=== PATIENT | female | born 1960 | race Caucasian/White ===

== ENCOUNTER 2018-10-06 08:50 | Day surgery (SDC) | payer OTHER, SELFPAY ==
[2018-10-06] VITALS (10 sets, daily range): BP systolic 89–119; BP diastolic 59–75; PULSE 54–80; RESP 9–22; TEMP 36.2–36.7; O2SAT 94–99; BMI 21.4
[2018-10-06] MEDS: SODIUM CHLORIDE 0.9% 1,000 ML 200 ML IV ×2 (09:00→10:30)
--- NOTE | 2018-10-06 09:46 | PM.HP.1 ---
History of Present Illness Date Patient Seen: 10/06/18 Time Patient Seen: 09:47 Chief complaint: [id number] Narrative: The patient is a woman here for screening colonoscopy. Her last exam was 10 years ago. No family history of colon cancer and no personal history of polyps. Patient History Family History (Updated 08/01/16 @ 00:00 by Conversion Provider) Father Age: 88 History of hip replacement Mother Age: 87 Cancer History of hip replacement Back pain Social History household members: spouse Family & Social History Family History Father Age: 88 History of hip replacement Mother Age: 87 Cancer History of hip replacement Back pain Social History: household members spouse Meds Home Medications Medication Instructions Recorded Confirmed Type gkerhtfdgi-tcmykzptxknpr-brnj 0 SEE INSTRUCTIONS #0 07/31/16 History levothyroxine 0 PO QAM #90 tab 08/05/16 Rx Allergies Allergy/AdvReac Type Severity Reaction Status Date / Time codeine [CODEINE] Allergy Unknown Unverified 06/25/17 12:35 Penicillins [PENICILLINS] Allergy Unknown Unverified 06/25/17 12:35 Review of Systems Review of Systems All systems reviewed & are unremarkable except as noted in HPI and below Exam Vital Signs (past 8 hours): - 10/06/18 09:09 Temperature 97.1 F L Pulse Rate 80 Respiratory Rate 16 Blood Pressure 119/75 Pulse Oximetry 99 Oxygen Delivery Method Room Air Narrative Exam Narrative: Pleasant cooperative patient no apparent distress. Lungs are clear to auscultation. No rales or rhonchi. Heart regular rate and rhythm no murmur gallop. Abdomen is soft nontender without mass. No obvious hernias. Patient is alert and oriented x3. Assessment & Plan Assessment & Plan narrative: The patient for a screening colonoscopy. I have discussed the procedure with them. Risks of bleeding, perforation which would necessitate major operation, failure to find remove all lesions, the potential tattoo were all discussed. All questions were answered. They wished to proceed.
--- NOTE | 2018-10-06 09:48 | PM.PREOP ---
Pre-operative Note Interval Note History & Physical reviewed/Exam performed by Physician: Yes Changes to H&P: No ASA Class (for procedural sedation): I
[2018-10-06] MEDS: ONDANSETRON 4 MG/2 ML INJ IV (09:52)
[2018-10-06] MEDS: MIDAZOLAM 5 MG/5 ML VIAL IV (09:55)
[2018-10-06] MEDS: fentaNYL 250 MCG/5 ML INJ IV (09:55)
--- NOTE | 2018-10-06 10:04 | PM.OP.ENDO ---
Operative Date/Time/Diagnoses Date of procedure: 10/06/18 Time of procedure: 10:04 Pre-op diagnosis: Screening exam. Last colonoscopy 10 years ago. Post-op diagnosis: same (Incomplete exam. Very poor prep.) Procedure & Clinicians Study performed: Colonoscopy abandoned at 35 cm Same procedure as scheduled: No Indications: Screening Surgeon: Ron Arias Procedure Notes SCOAP/Timeout: Performed Procedure in detail: The patient is placed in left lateral decubitus position underwent IV sedation directed by the surgeon consisting of fentanyl Versed. Digital exam was unremarkable. Scope was inserted and I medial encountered stool. Stool covered every surface of the colon from this point to where I abandoned the procedure at 35 cm. I was hoping to get above this level and find clear colon but it was apparent that that was not going to be the case. The scope was slowly removed. No lesions were seen. Will have to re-prepped the patient. She had nausea and vomiting so will try different prep and give her a 2 day prep. Scope withdrawal time: Not applicable Sedation minutes: 9 Findings: other findings (Stool covered the entire surface of the colon) Specimen(s): none sent Complications: none Recommendations: Other recommendation (Repeat colonoscopy with 2 day prep and a different product.) Follow up: as needed Disposition: PACU
--- NOTE | 2018-10-06 10:39 | SUR.PHASEII ---
Assumed care from Anirudh, pt c/o nausea and promptly started to dry heave then vomited yellow greenish vomit. Dr Arias called and made aware, compazine ordered, pharmacy called and will bring. Cool washcloth to forehead, pt did not want offered Queaze ease.
[2018-10-06] MEDS: PROCHLORPERAZINE 10 MG/2 ML VIAL IV (10:48)
[2018-10-06] MEDS: SCOPOLAMINE 1 PATCH TOP (10:54)
--- NOTE | 2018-10-06 10:57 | SUR.PHASEII ---
Compazine given and scopolamine patch. pt resting comfortably and call morris in reach.
--- NOTE | 2018-10-06 13:51 | SUR.PHASEII ---
Late enrty: Pt's nausea gone soon after meds and patch administered. in to pick pt up, medication instruction given. Pt ready to go , dressed and left in stable condition. Pt and aware to reschedule with surgery office.
== END 2018-10-06 12:15 | disposition home or self-care (01) ==
PROVIDERS: Family Provider Family Medicine; PCP Family Medicine; Visit Provider Specialist
PROC: 0DJD8ZZ Inspection of Lower Intestinal Tract, Via Natural or Artificial Opening Endoscopic (ICD-10-PCS; CPT 45378; principal; 2018-10-06 09:45)
DX: Z12.11 Encounter for screening for malignant neoplasm of colon (principal)
CPT/HCPCS: 45378; 99152; J0780; J2250; J2405; J3010

== ENCOUNTER 2019-01-19 07:45 | Day surgery (SDC) | payer OTHER, SELFPAY ==
[2019-01-19] VITALS (10 sets, daily range): BP systolic 93–131; BP diastolic 53–74; PULSE 52–70; RESP 11–16; TEMP 36–36.8; O2SAT 94–100; BMI 21.0
[2019-01-19] MEDS: SODIUM CHLORIDE 0.9% 1,000 ML 200 ML IV ×2 (08:20→10:22)
--- NOTE | 2019-01-19 08:57 | PM.HP.1 ---
History of Present Illness History of Present Illness Date Patient Seen: 01/19/19 Time Patient Seen: 08:57 Chief complaint: [id number] Narrative: The patient is a woman here for a screening colonoscopy. I attempted this in September but she had a very poor prep despite following the instructions. She is brought back after 2 day prep and a different type of prep. She said the results were much better and she is clear. Last colonoscopy was 11 years ago. Patient History Medical History Stomach ulcer (Acute) Family & Social History Family History Father Age: 88 History of hip replacement Mother Age: 87 Cancer History of hip replacement Back pain Social History: household members spouse Meds Home Medications and Allergies Home Medications Medication Instructions Recorded Confirmed Type fgcbownirk-jrtzixgqznizx-lbne 1 tab PO SEE INSTRUCTIONS #0 07/31/16 01/19/19 History levothyroxine 100 mcg PO QAM 10/06/18 01/19/19 History Allergies Allergy/AdvReac Type Severity Reaction Status Date / Time codeine [CODEINE] Allergy Unknown Rash-years Verified 01/19/19 08:02 ago Penicillins [PENICILLINS] Allergy Unknown Rash-25 Verified 01/19/19 08:02 years ago Review of Systems Review of Systems ROS Unobtainable: All systems reviewed & are unremarkable except as noted in HPI and below Exam Vital Signs (past 8 hours): - 01/19/19 08:08 Temperature 97.9 F Pulse Rate 53 L Respiratory Rate 15 Blood Pressure 110/67 Pulse Oximetry 100 Oxygen Delivery Method Room Air Narrative Exam Narrative: Pleasant cooperative patient no apparent distress. Lungs are clear to auscultation. No rales or rhonchi. Heart regular rate and rhythm no murmur gallop. Abdomen is soft nontender without mass. No obvious hernias. Patient is alert and oriented x3. Assessment & Plan Assessment & Plan narrative: The patient for a screening colonoscopy. I have discussed the procedure with them. Risks of bleeding, perforation which would necessitate major operation, failure to find remove all lesions, the potential tattoo were all discussed. All questions were answered. They wished to proceed.
--- NOTE | 2019-01-19 08:59 | PM.PREOP ---
Pre-operative Note Interval Note History & Physical reviewed/Exam performed by Physician: Yes Changes to H&P: No ASA Class (for procedural sedation): II
[2019-01-19] MEDS: fentaNYL 250 MCG/5 ML INJ IV (09:29)
[2019-01-19] MEDS: MIDAZOLAM 5 MG/5 ML VIAL IV (09:29)
--- NOTE | 2019-01-19 09:32 | PM.OP.ENDO ---
Operative Date/Time/Diagnoses Date of procedure: 01/19/19 Time of procedure: 09:33 Pre-op diagnosis: Screening examination. Last exam over 11 years ago. Post-op diagnosis: same (Sigmoid diverticulosis extensive) Procedure & Clinicians Study performed: Colonoscopy Same procedure as scheduled: Yes Indications: Screening Surgeon: Ron Arias Procedure Notes SCOAP/Timeout: Performed Procedure in detail: The patient was placed in the left lateral decubitus position and underwent IV sedation directed by the surgeon consisting of fentanyl and Versed. Digital exam was unremarkable. The scope was inserted and advanced through the rectum into the sigmoid, descending, transverse, and ascending colon. Numerous sigmoid diverticula were noted. There is some tortuosity of the sigmoid as well. Pressure was applied to make our way into the cecum. The cecum was reached identified by the ileocecal valve and the appendiceal opening. The scope was gradually brought out. No Polyps were found. The scope ultimately was retroflexed in the rectum. The appearance was normal. The scope was removed and the patient tolerated the procedure well Scope withdrawal time: 12 minutes Sedation minutes: 29 Findings: diverticulosis (Sigmoid) Specimen(s): none sent Post-procedure Recommendations: Colonscopy in 10 years Follow up: as needed Disposition: PACU
--- NOTE | 2019-01-19 10:14 | SUR.PHASEII ---
DURING TRANSPORT TO PHASE II, PT BECAME NAUSATED. PT HAD ONE EPISODE OF EMESIS APPROX 150ML OBSERVED TO BE LIGHT YELLOW LIQUID. VERBAL ORDER RECEIVED FOR ANTI-EMETIC. BED IN LOWEST POSITION AND CALL LIGHT GIVEN TO PT.
[2019-01-19] MEDS: ONDANSETRON 4 MG/2 ML INJ IV (10:19)
--- NOTE | 2019-01-19 11:26 | SUR.PHASEII ---
Late entry :Pt medicated with ondansetron by Carline, pt received relief, dressed when ready and left when ready and in stable condition.
== END 2019-01-19 10:45 | disposition home or self-care (01) ==
PROVIDERS: Visit Provider Specialist
PROC: 0DJD8ZZ Inspection of Lower Intestinal Tract, Via Natural or Artificial Opening Endoscopic (ICD-10-PCS; CPT 45378; principal; 2019-01-19 08:45)
DX: Z12.11 Encounter for screening for malignant neoplasm of colon (principal); K57.30 Diverticulosis of large intestine without perforation or abscess without bleeding
CPT/HCPCS: 45378; 99152; 99153; J2250; J2405; J3010

== ENCOUNTER → 2019-01-28 08:04 | Outpatient (CLI) | payer OTHER, SELFPAY ==
--- NOTE | 2019-01-28 08:07 | DI.RAD.S_ITS ---
PROCEDURE: XR ACUTE ABDOMEN SERIES INDICATIONS: abd px following colonoscopy TECHNIQUE: One view chest and two views of the abdomen were acquired. COMPARISON: [facility], , ABDOMEN ACUTE SERIES, 03/24/2015, 15:26. FINDINGS: Surgical changes and devices: None. Chest: Lungs are clear. Heart size is normal. No pleural effusions. No pneumoperitoneum. Abdomen: Mild fecal loading; otherwise nonobstructive bowel gas pattern. No suspicious calcifications. Visualized solid organ contours appear normal. Bones: No suspicious bony lesions. IMPRESSION: Mild fecal loading. Dictated by: Marty Barrios [facility] Interpreted: Pavan Green MD on 01/28/2019 at 9:29 Approved by: Pavan Green M.D. on 01/28/2019 at 10:12
== END ==
PROVIDERS: Visit Provider Specialist
DX: R10.9 Unspecified abdominal pain (principal); Z98.890 Other specified postprocedural states
CPT/HCPCS: 74022

== ENCOUNTER → 2019-05-13 16:41 | Outpatient (CLI) | payer OTHER, SELFPAY ==
--- NOTE | 2019-05-13 16:43 | DI.MG.S_ITS ---
BILATERAL DIGITAL SCREENING MAMMOGRAM 3D/2D WITH CAD: 05/13/2019 CLINICAL: Routine screening. Family history of breast cancer. Comparison is made to exams dated: 04/15/2016 mammogram, 04/23/2017 mammogram, and 04/30/2018 mammogram - [facility]. The tissue of both breasts is heterogeneously dense. This may lower the sensitivity of mammography. Current study was also evaluated with a Computer Aided Detection (CAD) system. No significant masses, calcifications, or other findings are seen in either breast. There has been no significant interval change. IMPRESSION: NEGATIVE There is no mammographic evidence of malignancy. A 1 year screening mammogram is recommended. This exam was interpreted at Station ID: [id number]. NOTE: For mammograms, a report in lay terms will be sent to the patient. Approximately 15% of breast malignancies will not be visualized mammographically. In the management of a palpable breast mass, a negative mammogram must not discourage biopsy of a clinically suspicious lesion. Electronically Signed By: Pavan crain/arnoldo:05/14/2019 07:34:11 letter sent: Normal Exam ACR BI-RADS Category 1: Negative 3341F
== END ==
PROVIDERS: Referring Provider Internal Medicine; Visit Provider Internal Medicine
DX: Z12.31 Encounter for screening mammogram for malignant neoplasm of breast (principal); Z80.3 Family history of malignant neoplasm of breast
CPT/HCPCS: 77063; 77067

== ENCOUNTER → 2020-07-01 08:05 | Outpatient (CLI) | payer OTHER, SELFPAY ==
--- NOTE | 2020-07-01 08:08 | DI.MG.S_ITS ---
BILATERAL DIGITAL SCREENING MAMMOGRAM 3D/2D WITH CAD: 07/01/2020 CLINICAL: Routine screening. Family history of breast cancer. Comparison is made to exams dated: 05/13/2019 mammogram - [facility], 04/30/2018 mammogram, 04/23/2017 mammogram, and 04/15/[address] - [facility]. The tissue of both breasts is heterogeneously dense. This may lower the sensitivity of mammography. Current study was also evaluated with a Computer Aided Detection (CAD) system. No significant masses, calcifications, or other findings are seen in either breast. There has been no significant interval change. IMPRESSION: NEGATIVE There is no mammographic evidence of malignancy. A 1 year screening mammogram is recommended. This exam was interpreted at Station ID: [id number]. NOTE: For mammograms, a report in lay terms will be sent to the patient. Approximately 15% of breast malignancies will not be visualized mammographically. In the management of a palpable breast mass, a negative mammogram must not discourage biopsy of a clinically suspicious lesion. Electronically Signed By: Andrew de la o/arnoldo:07/03/2020 07:46:21 letter sent: Normal Exam ACR BI-RADS Category 1: Negative 3341F
== END ==
PROVIDERS: Referring Provider Internal Medicine; Visit Provider Internal Medicine
DX: Z12.31 Encounter for screening mammogram for malignant neoplasm of breast (principal); Z80.3 Family history of malignant neoplasm of breast
CPT/HCPCS: 77063; 77067

== ENCOUNTER → 2021-08-24 16:34 | Outpatient (CLI) | payer OTHER, SELFPAY ==
[2021-08-24 17:24] LABS: COVID19 -Nasal RAPID Negative (Negative)
== END ==
PROVIDERS: PCP Family Medicine; Visit Provider Obstetrics & Gynecology
DX: Z20.822 Contact with and (suspected) exposure to COVID-19 (principal); Z01.812 Encounter for preprocedural laboratory examination
CPT/HCPCS: 87635

== ENCOUNTER 2021-08-27 13:28 | Day surgery (SDC) | payer OTHER, SELFPAY ==
[2021-08-22 12:09] VITALS: BMI 22.1
[2021-08-27] VITALS (14 sets, daily range): BP systolic 84–118; BP diastolic 41–69; PULSE 52–91; RESP 13–18; TEMP 36.1–37.2; O2SAT 92–99; BMI 21.2
[2021-08-27] MEDS: ACETAMINOPHEN 325 MG TABLET 650 MG PO (14:16)
[2021-08-27] MEDS: LACTATED RINGERS 1,000 ML 42 ML IV ×2 (14:17→15:54)
--- NOTE | 2021-08-27 14:24 | PM.PREOP ---
Pre-operative Note COVID-19 COVID-19 status: Negative Result date/Date tested (Pos, Neg/Pending): 08/24/21 Criteria for continued procedure: Non-surgical alternatives not available or appropriate per current SOC Interval Note History & Physical reviewed/Exam performed by Physician: Yes Changes to H&P: No
[2021-08-27 14:59] LABS: Add Manual Diff / Slide Review NO; Basophils Absolute Auto 0 /uL (0-100); Basophils Percent Auto 0.9 % (0-2); Eosinophils Absolute Auto 100 /uL (0-450); Eosinophils Percent Auto 1.9 % (2-4); Hematocrit 39.2 % (36-46); Hemoglobin 13.5 g/dL (12.0-16.0); Lymphocytes Absolute Auto 1100 /uL (1100-4500); Lymphocytes Percent Auto 22.1 % (25-40); Mean Corpuscular HGB Conc 34.5 % (30-36); Mean Corpuscular Hemoglobin 30.3 PG (26-34); Mean Corpuscular Volume 87.8 fL (80-100); Monocytes Absolute Auto 400 /uL (0-900); Monocytes Percent Auto 7.4 % (3-14); Neutrophils Absolute Auto 3400 /uL (1500-7000); Neutrophils Percent Auto 67.7 % (50-75); Platelet Count 230 X10^3/uL (150-400); Red Blood Cell Count 4.46 X10^6/uL (4.0-5.2); Red Cell Distribution Width 12.9 % (11.6-14.8); White Blood Cell Count 5.1 X10^3/uL (4.5-11.0)
[2021-08-27] MEDS: APREPITANT 40 MG CAPSULE PO (15:12)
[2021-08-27 15:14] LABS: BUN Creatinine Ratio 16.2 (6-22); Blood Urea Nitrogen 11 mg/dL (7-17); Calcium 8.8 mg/dL (8.4-10.2); Carbon Dioxide 29 mmol/L (22-32); Chloride 106 mmol/L (98-107); Estimated Glomerular Filt Rate > 60 mL/min (>60); Glucose 92 mg/dL (80-110); HEMOLYSIS 19 (0-50); Potassium 3.9 mmol/L (3.4-5.1); Sodium 138 mmol/L (137-145)
[2021-08-27] MEDS: SCOPOLAMINE 1 PATCH TOP (15:14)
[2021-08-27] MEDS: CEFAZOLIN 2 GM/20 ML SYRINGE IV (15:35)
--- NOTE | 2021-08-27 15:39 | SUR.OPER ---
Lithotomy on padded OR bed, head on pillow, arms secured on padded arm boards at <90 degrees abduction. Legs secured in padded yellow fins stirrups.
[2021-08-27] MEDS: BUPIVACAINE 0.5% (PF) 30 ML, EPINEPHrine 0.15 MG INJ (15:45)
--- NOTE | 2021-08-27 16:06 | P.OP_ITS ---
Operative Date/Time/Diagnoses Date of procedure: 08/27/21 Time of procedure: 15:00 Pre-op diagnosis: cystocele Post-op diagnosis: same Procedure & Clinicians Procedure: Procedures Operation Date: 08/27/21 14:30 Actual Procedure Side Surgeon p Anterior repair Melissa Clark MD Indications: symptomatic cystocele Surgeon: Melissa Clark X Ray Physician: Shreya Mcneil Anesthesia Type: General Operative Notes Findings: moderate cystocele. Otherwise normal vulva, vagina, cervix. Closure Type: primary Specimen(s): none Estimated blood loss (mL): 10 Procedure in detail: IVF: 1L LR UOP: 100ccs clear yellow urine After informed consent was obtained, the patient was taken to the operating room where general anesthesia was obtained without difficulty. She had voided just before transfer to the OR. She was prepped and draped in the usual sterile fashion, with sequential compression devices in place and running and s/p 2g Ancef. A angulo catheter was placed. Attention was then turned to the anterior vaginal wall, where a moderate cystocele was noted. 20ccs of a dilute solution of 0.5% bupivicaine with epinephrine was injected into the vaginal mucosa, and a 3cm area over the cystocele extending to the mid urethra was grasped at either end with Allis clamps and a midline, vertical incision made with a scalpel. The vaginal mucosa was dissected away from the cystocele with a combination of blunt and sharp dissection, and dissection extended until the edges of the fascia were revealed. A purse string suture was performed with 2-0 vicryl to reduce the cystocele, and interrupted sutures of 0 vicryl were placed to plicate the fascial edges. The vaginal mucosa was trimmed where necessary and repaired in a running, locked fashion with 2-0 vicryl. Vaginal packing was placed. The patient tolerated the procedure well and was transferred to the PACU in stable condition. All sponge and needle counts were correct x2. Complications: none Post-operative Condition: stable Disposition: PACU Plan for aftercare: Routine postoperative care. Angulo and packing in until AM.
[2021-08-27] MEDS: LACTATED RINGERS 1,000 ML 120 ML IV (16:08)
--- NOTE | 2021-08-27 16:35 | SUR.PHASEI ---
Report given to PANCHO Russell. CLothing bag to the room with the patient, denies pain/nausea. VSS.
[2021-08-27] MEDS: BUTALB/APAP/CAFFEINE 50/325/40 TABLET 1 EACH PO ×2 (17:11→23:49)
[2021-08-27] MEDS: LACTATED RINGERS 1,000 ML 125 ML IV ×2 (17:11→17:29)
--- NOTE | 2021-08-27 17:55 | PC.NURSE ---
Assess- Patient is alert and oriented x3, she complained of a migraine and given fiorcet which has been helpful for discomfort. Patient has vaginal packing and a angulo catheter putting out yellow urine. She has LR infusing at 125cc/hr and tolerating this to her l.hand iv. Voices no complaints at this time and ate good at dinner. will be here to visit in the morning.
[2021-08-28] MEDS: LACTATED RINGERS 1,000 ML 125 ML IV (00:48)
[2021-08-28 03:11] VITALS: BP 90/40; PULSE 48; RESP 18; TEMP 36.6; O2SAT 94
--- NOTE | 2021-08-28 03:33 | PC.NURSE ---
Pt has been hypotensive/bradicardic most of the shift, asymptomatic, will continue to monitor.
--- NOTE | 2021-08-28 06:39 | PC.NURSE ---
Addendum entered by Yaquelin Edmond R.N. 08/28/21 06:45: Dr. Stevenson aware that pt has been hypertensive with a SBP OF 90. Original Note: Spoke to Dr Clark this am over the phone to clarify that it was ok to remove catheter and vaginal packing this am. Telefone orders taken to remove angulo catheter and vaginal packing and to discontinue ivf. Pt educated on calling the staff when ever she needs to get up to the bathroon.
[2021-08-28 07:00] VITALS: BP 87/41; PULSE 54; RESP 18; TEMP 36.2; O2SAT 92
--- NOTE | 2021-08-28 07:52 | PM.DS.1 ---
History of Present Illness History of Present Illness Date Patient Seen: 08/28/21 Time Patient Seen: 07:52 Chief complaint: OPB Narrative: This patient was admitted for scheduled anterior repair for a cystocele. Her surgery was uncomplicated, and she was discharged on POD#1 with routine precautions after meeting all postoperative goals. Discharge Providers Provider Discharge Date: 08/28/21 Primary care physician: Сергей Oh DO Consults: 08/27/21 16:48 Consult to Discharge Planning Routine Comment: Discharge provider: Melissa Clark MD Summary Status at Discharge Cognitive/behavioral status at discharge: oriented Functional status at discharge: independent ambulation Overall status at discharge: patient is progressing back to baseline Exam Vital Signs (past 8 hours): - 08/28/21 03:11 Temperature 98 F Pulse Rate 48 L Respiratory Rate 18 Blood Pressure 90/40 L Pulse Oximetry 94 Oxygen Flow Rate 0 Oxygen Delivery Method Room Air Oxygen Flow Rate 0 Narrative Exam Narrative: Patient resting in bed. TOlerating PO, passing flatus, no pain and has required no pain medication overnight. [place] and packing removed by nursing staff 1 hr ago, patient planning to call nurse to void. No vaginal bleeding. Const General: cooperative, healthy appearing, comfortable and well groomed GI Palpation: soft and No tender Extrem General: normal to inspection Objective Labs Result Diagrams: 08/27/21 14:45 08/27/21 14:45 Labs: Laboratory Results - last 24 hr 08/27/21 08/27/21 08/27/21 14:45 14:45 14:45 WBC 5.1 RBC 4.46 Hgb 13.5 Hct 39.2 MCV 87.8 MCH 30.3 MCHC 34.5 RDW 12.9 Plt Count 230 Neut % (Auto) 67.7 Lymph % (Auto) 22.1 L [place] % (Auto) 7.4 Eos % (Auto) 1.9 L Baso % (Auto) 0.9 Neut # (Auto) 3400 Lymph # (Auto) 1100 [place] # (Auto) 400 Eos # (Auto) 100 Baso # (Auto) 0 Sodium 138 Potassium 3.9 Chloride 106 Carbon Dioxide 29 BUN 11 Creatinine 0.68 Estimated GFR > 60 BUN/Creatinine Ratio 16.2 Glucose 92 Calcium 8.8 Blood Type O Positive Antibody Screen Negative [facility] Medical History Abnormal Pap smear of cervix (~1991) Chicken pox (~1962) Headache Hypothyroid Migraines Mumps PONV (postoperative nausea and vomiting) Stomach ulcer Surgical History Anesthesia History of tubal ligation (~1992) Hx of melanoma excision (2021) Skin cancer (~2021) Family History Father Age: 91 History of hip replacement Mother Cancer History of hip replacement Back pain Stroke Social History household members: spouse Smoking Status: Never smoker alcohol intake: current Discharge Plan Discharge Plan Patient Disposition: Home Discharge orders & Medications Discharge Orders: Discharge (Order); Ordered 08/28/21 Ordered By: Melissa Clark Prescriptions: Continued rizatriptan 10 mg tablet See Rx Instructions .ROUTE .COMPLEX Rx Instructions: for Migraines levothyroxine 100 MCG tablet 100 mcg PO QAM Discontinued estradiol 0.01 % (0.1 mg/gram) cream 1 g vaginal 2XW Qty: 42.5 0RF Rx Instructions: 2x weekly. Follow up/Referrals: Melissa Clark MD [Physician] - 09/13/21 4:45 pm (appt:09/13 @ 4:45 w/Dr. Clark for postop check please arrive 15 min prior to scheduled appointment time) Сергей Oh DO [Primary Care Provider] - Diet/Activity/Treatments Diet: Regular Activity: Nothing in the vagina for 12 weeks. Avoid lifting more than 10 lbs for 12 weeks. If you have increasing bleeding, fevers, chills, nausea, trouble urinating, or any other symptoms, call or come to the emergency room. Skin/Wound/Dressing Care Report to your healthcare provider any signs of infection, such as:: chills, fever, night sweats, increased pain, unusual drainage and unusual redness Visit Report/Discharge Packet Instructions: DI for Cystocele/Rectocele, DI for Cystocele and Rectocele Repair Stand Alone Forms: Surgery Discharge Discharge Data Primary Care Provider: Сергей Oh Attending Provider: Melissa Clark VTE Deep Vein Thrombosis/Pulmonary Embolism Present on Admission: No
--- NOTE | 2021-08-28 08:22 | PC.NURSE ---
Addendum entered by Priti Hay R.N. 08/28/21 10:25: Patient is asymptomatic with low blood pressures and is not dizzy or feeling faint. Addendum entered by Priti Hay R.N. 08/28/21 10:23: Patients systolic up in the 90s. She has been having soft blood pressures since being admitted to floor yesterday. She voided a large amount of bloody colored urine and will be able to go home at 1100am. Paperwork finished and patient will be here around 11. Original Note: Assess- Patients blood pressure 87/41 and she is not dizzy. She states that her pressures does run low. Will retake in an hour. Patients angulo catheter and packing taken out this morning and patient tolerated well. She has a catarina pad on with a medium sized amount of dark dried blood. Will send patient home with a clean pad and help her get washed up. She ate half of her breakfast and is now drinking coffee. She denies a headache and is comfortable.
[2021-08-28 09:14] VITALS: PULSE 60; RESP 18; O2SAT 96
[2021-08-28 10:20] VITALS: BP 93/47; PULSE 46; RESP 18; TEMP 36.4; O2SAT 99
--- NOTE | 2021-08-28 11:13 | CM.DANOTE ---
Initial Discharge Plan Assessment: Case received, EMR reviewed and met with patient. Introduced self and role. 60 year old female underwent cystocele repair yesterday. PCP: Сергей Oh, surgeon Dr Clark Payer: long [place], self pay Patient had uncomplicated surgery and is feeling well today she reports and awaiting to ambulate and void in BR. 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 She lives in private home with her Yan Tavares ([phone]). He will transport her home. P: Discharge plan is to return home to care of spouse. Spouse will transport. Demetria Vance RN/NENITA Discharge Planning/Care Management CM Discharge Assessment Start: 08/28/21 11:11 Freq: Status: Active Protocol: Document 08/28/21 11:11 (Rec: 08/28/21 11:13 [id number]) Discharge Planning Assessment Assigned Senior Tax Accountant Demetria Vance RN/NENITA Advance Directives? Yes Advance Directives on File No History Provided By Patient,Medical Record Has Patient been admitted in last 30 No days? Prior Living Arrangements House Household Members spouse Type of transporation used prior to Drives own vehicle admit Independent with ADL's Yes Is patient alert and oriented? Yes Caregiver for Another No Barriers to Discharge No Discharge Plan Home Referrals Initiated None needed Whiteboard Updated in Patient Room with Yes name and ext. # of Senior Tax Accountant Review Status In Process Next Review Type Continued Stay Review Pre-Anesthesia Assessment Start: 08/22/21 12:09 Freq: Status: Active Protocol: Document 08/22/21 12:09 [facility] (Rec: 08/22/21 12:15 [facility] [id number]) Pre-Anesthesia Assessment Patient Information Reviewed Via Chart Review Comment COVID screen @ 08/24/21 Seen Specialist in Last 12 Months Yes Specialist Seen Breakfast Host Primary Language Thai Set Up Worker Required No Height 170.18 cm Weight 63.957 kg Body Mass Index (BMI) 22.1 Barriers to Learning None Hx Anesthesia Reactions Yes: PONV Hx Family Anesthesia Reaction No Hx Malignant Hyperthermia No Hx Blood Transfusion Reaction No Anesthesia Review Requested No Slip Presser No Smoking Status Never smoker History of Falling (Recent or History of No ) Patient is completely paralyzed or No completely immobile Mental Status Oriented to own ability Hx Sleep Apnea No CPAP/BIPAP use not prescribed Currently Taking a Beta Erna No Anti-Coagulant Therapy No Hx Pacemaker/ICD No Pacemaker Rep Required? No Cardiac Clearance Received Not Applicable Urinary Catheter Present No Hx Urinary Self Catheterization No Diabetes No Patient No Lactating No Presence of External or Internal Medical No Devices Marital Status Lives With spouse Patient Discharge Plan Description Return Home Advance Directives? No
== END 2021-08-28 11:16 | disposition home or self-care (01) ==
LOC: OR 13:29 → AC 13:30
PROVIDERS: PCP Family Medicine; Referring Provider Obstetrics & Gynecology; Visit Provider Obstetrics & Gynecology
PROC: (CPT 57240; principal; 2021-08-27 14:30)
DX: N81.10 Cystocele, unspecified (principal); E03.9 Hypothyroidism, unspecified
CPT/HCPCS: 57240; 36415; 80048; 82962; 85025; 86850; 86900; 86901; 94762; J0171; J0690; J1100; J1885; J2250; J2405; J2704; J3010; J8501

== ENCOUNTER → 2023-10-23 12:23 | Outpatient (CLI) | payer MEDICARE, OTHER, SELFPAY ==
[2021-08-27 13:52] VITALS: BMI 21.2
[2023-10-23 14:11] LABS: Add Manual Diff / Slide Review NO; Basophils Absolute Auto 100 /uL (0-100); Basophils Percent Auto 1.1 % (0-2); Eosinophils Absolute Auto 100 /uL (0-450); Eosinophils Percent Auto 2.6 % (2-4); Hematocrit 42.6 % (36-46); Hemoglobin 14.2 g/dL (12.0-16.0); Lymphocytes Absolute Auto 1800 /uL (1100-4500); Lymphocytes Percent Auto 35.3 % (25-40); Mean Corpuscular HGB Conc 33.4 % (30-36); Mean Corpuscular Hemoglobin 29.7 PG (26-34); Mean Corpuscular Volume 88.9 fL (80-100); Monocytes Absolute Auto 500 /uL (0-900); Monocytes Percent Auto 8.8 % (3-14); Neutrophils Absolute Auto 2700 /uL (1500-7000); Neutrophils Percent Auto 52.2 % (50-75); Platelet Count 281 X10^3/uL (150-400); Red Blood Cell Count 4.79 X10^6/uL (4.0-5.2); Red Cell Distribution Width 13.3 % (11.6-14.8); White Blood Cell Count 5.2 X10^3/uL (4.5-11.0)
[2023-10-23 15:18] LABS: HEMOLYSIS < 15 (0-50); Iron 102 ug/dL (37-170)
[2023-10-23 15:20] LABS: Alanine Aminotransferase 29 IU/L (<35); Albumin 4.2 g/dL (3.5-5.0); Albumin Globulin Ratio 1.4 (1.0-2.8); Alkaline Phosphatase 71 U/L (38-126); Aspartate Aminotransferase 41 IU/L (14-36); BUN Creatinine Ratio 17.1 (6-22); Bilirubin Total 0.5 mg/dL (0.2-1.3); Blood Urea Nitrogen 13 mg/dL (7-17); Calcium 9.7 mg/dL (8.4-10.2); Carbon Dioxide 27 mmol/L (22-32); Chloride 105 mmol/L (98-107); Cholesterol 223 mg/dL (140-199); Estimated Glomerular Filt Rate > 60 mL/min (>60); Globulin 2.9 g/dL (1.7-4.1); Glucose 89 mg/dL (80-110); HDL Cholesterol 81 mg/dL (40-60); HEMOLYSIS < 15 (0-50); LDL Cholesterol Calculated 127 mg/dL (<100); Potassium 4.5 mmol/L (3.4-5.1); Sodium 137 mmol/L (137-145); Total Protein 7.1 g/dL (6.3-8.2); Triglycerides 76 mg/dL (35-150)
[2023-10-23 15:30] LABS: Percent Iron Saturation 30 % (15-50); Total Iron Binding Capacity 341 ug/dL (265-497); Transferrin 276 mg/dL (206-381)
[2023-10-23 15:50] LABS: TSH w/ Reflex to FT4 1.22 uIU/mL (0.47-4.68)
[2023-10-23 15:55] LABS: Ferritin 24 ng/mL (11-264)
== END ==
PROVIDERS: PCP Student in an Organized Health Care Education/Training Program; Referring Provider Student in an Organized Health Care Education/Training Program; Visit Provider Student in an Organized Health Care Education/Training Program
DX: R53.83 Other fatigue (principal); E03.9 Hypothyroidism, unspecified
CPT/HCPCS: 36415; 80053; 80061; 82728; 83540; 83550; 84443; 85025

== ENCOUNTER → 2024-07-26 15:17 | Outpatient (CLI) | payer MEDICARE, OTHER, SELFPAY ==
[2021-08-27 13:52] VITALS: BMI 21.2
--- NOTE | 2024-07-26 15:20 | DI.MG.S_ITS ---
MM screening mammo BI: 07/26/2024. BI-RADS: 1 CLINICAL: 63-year old female for bilateral screening mammogram. Tyrer-Cuzick lifetime risk of 5.0%. No personal or first-degree family history of breast cancer. PRIOR EXAMS 07/2023, 07/2022, 06/2021, 07/02/2019 [facility] 07/01/2020, 05/13/2019. MAMMOGRAPHY TECHNIQUE: 2D and 3D (tomosynthesis) digital mammographic views obtained, with additional images as needed for full coverage. Current study was also evaluated with a Computer Aided Detection (CAD) system. DENSITY C. The breasts are heterogeneously dense, which may obscure small masses. MAMMOGRAPHY FINDINGS Bilateral: No suspicious mass, asymmetry, microcalcification, or other abnormality seen. IMPRESSION: * No evidence of malignancy. RECOMMENDATIONS Bilateral * Annual screening mammography. OVERALL ASSESSMENT CATEGORY BI-RADS-1: Negative. The [employer] recommends annual screening mammography beginning at age 40 for women with average risk of breast cancer. ELECTRONICALLY SIGNED: Andrew Spencer M.D. on 07/26/2024 at 05:04:04 PM PT Interpreting Station ID: [id number]
== END ==
PROVIDERS: PCP Student in an Organized Health Care Education/Training Program; Referring Provider Student in an Organized Health Care Education/Training Program; Visit Provider Student in an Organized Health Care Education/Training Program
DX: Z12.31 Encounter for screening mammogram for malignant neoplasm of breast (principal); R92.333 Mammographic heterogeneous density, bilateral breasts
CPT/HCPCS: 77063; 77067